=== PATIENT | male | born 1950 | race Caucasian/White ===

== ENCOUNTER → 2019-08-09 | Outpatient (CLI) | payer MEDICARE ==
--- NOTE | 2019-08-09 11:33 | CT ---
EXAMINATION TYPE: CT upper extremity LT wo con DATE OF EXAM: 08/09/2019 COMPARISON: No plain film submitted for correlation HISTORY: Fall, fracture CT DLP: 314.9 mGycm Automated exposure control for dose reduction was used. Helical imaging through the left shoulder [facility] departmental protocol FINDINGS: There is a comminuted displaced left proximal humeral fracture. Some areas of vague increased attenua tion present within the marrow of the visualized humerus are indeterminate. Apparent lytic deformity present within the left humerus. No evident lung mass or pleural perfusion. No pneumothorax. Subcutaneous edema changes are present. No evident dislocation. Coronary artery calcifications are pr esent. No visualized mediastinal or aorticopulmonary window adenopathy. IMPRESSION: FINDINGS MAY REPRESENT PATHOLOGIC FRACTURE OF THE PROXIMAL HUMERUS. CONSIDER BONE SCAN, CORRELATE FOR POSSIBLE METASTATIC DISEASE. A Yellow level critical message alert has been initiated for Matt Kearns MD via the [employer] Critical Results System on 08/09/2019 11:30 AM. This message alert has been sent to Matt Kearns MD via the preferences provided by the clinician for the receipt of Radiology Critical Findings. [id number] age ID [id number].
== END | disposition home or self-care (01) ==
LOC: RADCTMAIN 09:41
PROVIDERS: ATTEND Orthopaedic Surgery
DX: S42.352A Displaced comminuted fracture of shaft of humerus, left arm, initial encounter for closed fracture (principal); S42.212A Unspecified displaced fracture of surgical neck of left humerus, initial encounter for closed fracture